=== PATIENT | male | born 1965 | race African-American/Black ===

== ENCOUNTER 2016-12-29 13:26 | Emergency (ER) | payer OTHER ==
[~2016-12-29] VITALS: Ht 167.6 cm; Wt 70.3 kg
--- NOTE | ~2016-12-29 | CR72 ---
[facility] A Service of [facility] & [facility] RADIOLOGY TEXT RESULTS PATIENT: RIN HALE LOCATION: [facility] : 69 UNIT #: [id number] AGE: [address]: Johan Juarez MD SEX: M ORDER DR: [id number] [facility] [address] [place], [place] [address] [id number] MR#: [id number] Acc #: [id number] NAME: RIN HALE : 1965 SEX: M STUDY DATE/TIME: 12/29/2016 16:08 UNIT: [facility] ROOM: STUDY DESCRIPTION: CR Chest Single View Portable Attending Physician: Johan Juarez M.D. Ordering Physician: Johan Juarez M.D. Primary Care Physician: Kandace Boykin Aprn MEDICAL IMAGING REPORT This report is preliminary unless electronic signature is present EXAM Portable chest. HISTORY Chest pain, shortness of air for 5 days. FINDINGS A single AP view of the chest shows both lungs to be clear. The heart is normal in size. The mediastinal contour is normal. No significant bone abnormalities are seen. IMPRESSION Normal AP chest. Dictated by... Cm Arcos M.D. THIS IS AN ELECTRONICALLY VERIFIED REPORT Cm Arcos M.D. at 12/30/2016 3:12 PM Анна TD: 12/30/2016 09:17 JOB #: [id number] MEDICAL IMAGING REPORT Page 1 of 1 COPY
[2016-12-29 14:40] LABS: URINE SOURCE CLEAN CATCH
[2016-12-29 14:55] LABS: URINE APPEARANCE CLEAR; URINE BILIRUBIN NEG (NEG); URINE BLOOD NEG (NEG); URINE COLOR YELLOW; URINE GLUCOSE NEG (NEG); URINE KETONE NEG (NEG); URINE LEUKOCYTE ESTERASE NEG (NEG); URINE NITRATE NEG (NEG); URINE PROTEIN NEG (NEG); URINE SPECIFIC GRAVITY 1.003 (1.003-1.035); URINE UROBILINOGEN 0.2 MG/DL (NEG)
[2016-12-29 15:06] LABS: CULTURE INDICATED? NO
[2016-12-29 15:32] LABS: BASOPHIL% 0.3 % (0-2.5); EOSINOPHIL% 0.6 % (0.0-7.0); HEMATOCRIT 43.1 % (38.0-50.0); HEMOGLOBIN 15.3 gm/dL (13.0-16.0); LYMPHOCYTE# 1.3 X10e3 (1.0-3.5); LYMPHOCYTE% 34.7 % (17.0-45.0); MEAN CELL VOLUME 87.9 FL (83-96); MEAN CORPUSCULAR HEMOGLOBIN 31.3 PG (28-34); MEAN CORPUSCULAR HGB CONC 35.6 g/dL (30-36); MONOCYTE# 0.4 X10e3 (0-1.0); MONOCYTE% 10.6 % (3.0-12.0); NEUTROPHIL% 53.8 % (40-75); PLATELET COUNT 195 X10e3 (140-420); RED BLOOD COUNT 4.91 X10e (3.90-5.60); RED CELL DISTRIBUTION WIDTH 12.5 % (11.0-15.5); WHITE BLOOD COUNT 3.7 X10e3 (4.0-10.5)
[2016-12-29 15:33] LABS: DIFF IND NO
[2016-12-29 16:06] LABS: ALBUMIN SERUM 4.3 g/dL (3.5-5.0); BILIRUBIN, DIRECT 0.2 mg/dL (0.0-0.2); BILIRUBIN,INDIRECT 1.4 mg/dL (0.0-0.9); BILIRUBIN,TOTAL 1.6 mg/dL (0.2-2.0); CALCIUM SERUM 9.2 mg/dL (8.4-10.2); PROTEIN TOTAL SERUM 7.1 g/dL (6.0-8.3)
[2016-12-29 16:10] LABS: POTASSIUM 2.7 mmol/L (3.5-5.1)
[2017-01-02] MEDS ORDERED: HYDROCHLOROTHIA25 MG PO (06:37)
[2017-01-02] MEDS ORDERED: POTASSIUM20 MEQ/15 (06:38)
[2017-01-02] MEDS ORDERED: PEPCID PO (06:38)
[2017-01-02] MEDS ORDERED: PANTOPRAZOLE SO40 MG PO (08:15)
== END 2016-12-29 17:01 | disposition home or self-care (01) ==
LOC: CED 13:26
DX: T18.128A Food in esophagus causing other injury, initial encounter (principal); E87.6 Hypokalemia; I10 Essential (primary) hypertension; K21.9 Gastro-esophageal reflux disease without esophagitis
CPT/HCPCS: 71010; 80048; 80076; 81003; 83690; 85025; 99284